=== PATIENT | female | born 1990 | race Caucasian/White ===

== ENCOUNTER 2017-06-09 05:50 | Inpatient (IN) | payer BC, MEDICAID ==
[~2017-06-09] VITALS: Ht 160 cm; Wt 67.6 kg
--- NOTE | 2017-06-09 05:51 | NUR ---
PT ROXY POTTER. TAKEN TO BED EDGI
--- NOTE | 2017-06-09 05:53 | NUR ---
Dr. Duncan evaluating patient at bedside.
[2017-06-09 05:58] VITALS: BP 123/99
--- NOTE | 2017-06-09 06:10 | NUR ---
27/F biba c/o syncopal episode after receiving hormones. 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 Pt states she is approximately 6 weeks . Denies vaginal bleeding. Denies N/V/D. Denies fever or chills. G3 P-1 A-1 miscarriage. AOX4, VSS.
[2017-06-09] MEDS ORDERED: NACL 0.9% 1,000 ML IV ONE (06:25)
--- NOTE | 2017-06-09 06:42 | NUR ---
Ultrasound at bedside.
[2017-06-09 06:51] LABS: BILIRUBIN,URINE NEGATIVE (NEGATIVE); BLOOD, URINE NEGATIVE (NEGATIVE); COLOR,URINE YELLOW (YELLOW); LEUKOCYTE ESTERASE ,URINE NEGATIVE (NEGATIVE); NITRITE, URINE NEGATIVE (NEGATIVE); UGLUCOSE NEGATIVE (NEGATIVE)
[2017-06-09 06:53] LABS: BASOPHILS # (AUTO) 0.1 K/uL (0.00-0.22); BASOPHILS % (AUTO) 0.9 % (0.0-2.0); EOSINOPHILS # (AUTO) 0.1 K/uL (0-0.4); EOSINOPHILS % (AUTO) 1.1 % (0.0-4.0); HEMATOCRIT 36.3 % (36-48); HEMOGLOBIN 12.6 g/dL (12.0-16.0); LYMPHOCYTES # (AUTO) 1.3 K/uL (2.5-16.5); LYMPHOCYTES % (AUTO) 13.1 % (20.5-51.1); MEAN CORPUSCULAR HEMOGLOBIN 31 pg (27-31); MEAN CORPUSCULAR HGB CONC 35 g/dL (33-37); MEAN CORPUSCULAR VOLUME 88 fL (80-94); MONOCYTES # (AUTO) 0.8 K/uL (0.8-1.0); MONOCYTES % (AUTO) 8.1 % (1.7-9.3); NEUTROPHILS # (AUTO) 7.5 K/uL (1.8-7.7); NEUTROPHILS % (AUTO) 76.8 % (42.2-75.2); PLATELET COUNT (AUTO) 264 K/uL (140-450); RED BLOOD CELL COUNT(AUTO) 4.12 MIL/uL (4.20-5.40); RED CELL DISTRIBUTION WIDTH 11.8 % (11.6-13.7); WHITE BLOOD COUNT (AUTO) 9.8 K/uL (4.8-10.8)
--- NOTE | 2017-06-09 07:05 | NUR ---
RECEIVED REPORT FROM ABIMBOLA GARNICA; US AT BEDSIDE AT THIS TIME; WILL CONTINUE TO MONITOR.
--- NOTE | 2017-06-09 07:07 | NUR ---
Pt report given to Kaiden DAILY. Transfer of care at this time.
[2017-06-09 07:09] LABS: APPEARANCE,URINE SLIGHTLY CLOUDY (CLEAR)
[2017-06-09 07:12] LABS: RBC,URINE 0-5 (RARE) /HPF (0-5); WBC,URINE 0-5 (RARE) /HPF (0-5)
--- NOTE | 2017-06-09 07:17 | NUR ---
Dr. Sanchez evaluating patient at bedside.
[2017-06-09 07:21] LABS: ALBUMIN 2.7 g/dL (3.4-5.0); ANION GAP 11.8 (8-16); CARBON DIOXIDE 25.8 mmol/L (21-32); CREATININE 0.7 mg/dL (0.6-1.3); POTASSIUM 3.6 mmol/L (3.5-5.1); TOTAL BILIRUBIN 0.4 mg/dL (0.0-1.0)
--- NOTE | 2017-06-09 08:28 | NUR ---
REPORT GIVEN TO ABIMBOLA AZAR.
--- NOTE | 2017-06-09 08:32 | NUR ---
Patient will be admitted to care of DR. GARCIA. Admited to TELEMETRY. Will go to room 119B. Belongings list completed. Report to ABIMBOLA AZAR.
[2017-06-09 08:34] VITALS: BP 119/75
[2017-06-09] MEDS ORDERED: [UNRECOGNIZED DRUG - CODE] IM (08:54)
[2017-06-09] MEDS ORDERED: [UNRECOGNIZED DRUG - CODE] VG (08:54)
[2017-06-09] MEDS ORDERED: [UNRECOGNIZED DRUG - CODE] TD (08:54)
[2017-06-09] MEDS ORDERED: ONDANSETRON 4 MG/2 ML VIAL IVP PRN (10:15)
[2017-06-09 10:50] LABS: PROTHROMBIN TIME 10.3 secs (10.8-13.4)
[2017-06-09 11:06] LABS: FREE T4 (FREE THYROXINE) 1.19 ng/dL (0.76-1.46); MAGNESIUM 1.6 mg/dL (1.8-2.4); PHOSPHORUS 3.6 mg/dL (2.5-4.9); THYROID STIMULATING HORMONE 1.96 uIU/mL (0.34-3.74)
--- NOTE | 2017-06-09 11:20 | NUR ---
1011 RECEIVED CALL FROM DOE BAZZI AT [facility] AND SHE REQUESTED ED NOTE AND ANY OTHER CLINICAL DOCUMENTATION AVAILABLE BE FAXED TO [phone]. PHONE [phone]. INFORMATION FAX REQUESTED AND ALSO INCLUDED CONTACT NUMBER FOR RESIDENT PHONE FOR PEER TO PEER WITH THEIR CALL CENTER COORDINATOR.
[2017-06-09] MEDS: NACL 0.9% 1,000 ML IV SCH (11:30)
[2017-06-09 12:00] VITALS: BP 106/65
[2017-06-09] MEDS ORDERED: MAG SULF 2000 MG/WATER PREMIX 50 ML IV ONE (12:30)
--- NOTE | 2017-06-09 12:50 | NUR ---
SPOKE WITH STEPHANIA [phone] REGARDING PATIENT'S CARE WITH PATIENT'S CONSENT.
--- NOTE | 2017-06-09 13:04 | NUR ---
ADMINISTERED SCHEDULED MEDICATIONS. PATIENT IV MAGNESIUM IS INFUSING WELL. THE BED IS LOWERED, CALL LIGHT WITHIN REACH AND AT BEDSIDE.
--- NOTE | 2017-06-09 14:40 | NUR ---
CM NOTE PER HOME HELP AIDE JS, SHE [facility] [phone] AND WAS TOLD THAT PATIENT IS APPROVED FOR ONE DAY AUTH# [id number], NO REVIEWS NEEDED FOR AUTHORIZED DAY.
--- NOTE | 2017-06-09 14:50 | NUR ---
PATIENT C/O HEADACHE 11/27 ADMINISTERED TYLENOL 650 MG PO. WILL REASSESS IN ONE HR.
[2017-06-09] MEDS: ACETAMINOPHEN 325 MG TAB PO PRN ×2 (14:51→21:06)
--- NOTE | 2017-06-09 15:50 | NUR ---
PATIENT IS SLEEPING.
[2017-06-09 16:00] VITALS: BP 100/59
--- NOTE | 2017-06-09 17:00 | NUR ---
PATIENT IS WATCHING TV AND SHOWS NO S/S OF ACUTE DISTRESS ON ROOM AIR. BED IS LOWERED WITH CALL LIGHT WITHIN REACH.
--- NOTE | 2017-06-09 19:18 | NUR ---
PATIENT IS AAOX4 AND SHOWS NO S/S OF ACUTE DISTRESS ON ROOM AIR. FAMILY AT BEDSIDE. GAVE PATIENT REPORT AT BEDSIDE TO NIGHT NURSE. PATIENT ENDORSED IN STABLE CONDITION.
--- NOTE | 2017-06-09 19:19 | NUR ---
RECEIVED REPORT FROM DAY RN FOR CONTINUITY OF CARE. PATIENT IS ALERT AND ORIENTED X4, DISCUSSED PLAN OF CARE WITH PATIENT, VERBALIZED UNDERSTANDING. SHIFT ASSESSMENT DONE, VITAL SIGNS STABLE. PATIENT C/O HEADACHE, WILL MEDICATE PER MD ORDER. NO RESPIRATORY DISTRESS OR DISCOMFORT NOTED. IV PATENT AND INFUSING FLUIDS WELL. SAFETY PRECAUTIONS ENFORCED. FAMILY MEMBER AT BEDSIDE. CALL LIGHT WITHIN REACH, WILL CONTINUE TO MONITOR.
[2017-06-09 20:00] VITALS: BP 104/70
[2017-06-09] MEDS: DOCUSATE SODIUM 100 MG GELCAP PO SCH (21:06)
--- NOTE | 2017-06-09 21:06 | NUR ---
DUE MEDICATIONS ADMINISTERED, TOLERATED WELL. PATIENT MEDICATED FOR C/O HEADACHE. CALL LIGHT WITHIN REACH, WILL CONTINUE TO MONITOR.
--- NOTE | 2017-06-09 21:20 | NUR ---
DR. ESPINOSA IN TO SEE PATIENT.
--- NOTE | 2017-06-09 23:52 | NUR ---
VITAL SIGNS STABLE, PATIENT RESTING IN BED NO DISTRESS OR DISCOMFORT NOTED. CALL LIGHT WITHIN REACH, WILL CONTINUE TO MONITOR.
[2017-06-09 23:56] LABS: BARBITURATE, URINE NEG. ng/ml (NEG <=200); BENZODIAZEPINE, URINE NEG. ng/mL (NEG <=200); CANNABINOID, URINE NEG. ng/mL (NEG <=50); COCAINE, URINE NEG. ng/mL (NEG <=300); OPIATE, URINE NEG. ng/mL (NEG <=2000); PHENCYCLIDINE SCREEN,URINE NEG. ng/mL (NEG <=25)
[2017-06-10] VITALS: BP 103/53
--- NOTE | 2017-06-10 02:05 | NUR ---
PATIENT ASLEEP AT THIS TIME, NO DISTRESS OR DISCOMFORT NOTED. SAFETY PRECAUTIONS ENFORCED, CALL LIGHT WITHIN REACH.
[2017-06-10 04:00] VITALS: BP 110/63
--- NOTE | 2017-06-10 04:12 | NUR ---
VITAL SIGNS STABLE, PATIENT RESTING IN BED NO DISTRESS OR DISCOMFORT NOTED. WILL CONTINUE TO MONITOR.
[2017-06-10] MEDS: ACETAMINOPHEN 325 MG TAB PO PRN ×2 (05:28→15:56)
[2017-06-10] MEDS: NACL 0.9% 1,000 ML IV SCH (06:16)
[2017-06-10 06:47] LABS: BASOPHILS # (AUTO) 0.2 K/uL (0.00-0.22); EOSINOPHILS # (AUTO) 0.3 K/uL (0-0.4); EOSINOPHILS % (AUTO) 1.8 % (0.0-4.0); HEMATOCRIT 37.1 % (36-48); LYMPHOCYTES # (AUTO) 1.8 K/uL (2.5-16.5); LYMPHOCYTES % (AUTO) 11.1 % (20.5-51.1); MEAN CORPUSCULAR HEMOGLOBIN 31 pg (27-31); MEAN CORPUSCULAR HGB CONC 35 g/dL (33-37); MEAN CORPUSCULAR VOLUME 89 fL (80-94); MONOCYTES # (AUTO) 0.8 K/uL (0.8-1.0); NEUTROPHILS # (AUTO) 13.2 K/uL (1.8-7.7); NEUTROPHILS % (AUTO) 81.1 % (42.2-75.2); PLATELET COUNT (AUTO) 274 K/uL (140-450); RED BLOOD CELL COUNT(AUTO) 4.19 MIL/uL (4.20-5.40); RED CELL DISTRIBUTION WIDTH 12.1 % (11.6-13.7)
--- NOTE | 2017-06-10 07:17 | NUR ---
ENDORSED PATIENT TO DAY RN FOR CONTINUITY OF CARE, PATIENT IS IN STABLE CONDITION.
--- NOTE | 2017-06-10 07:18 | NUR ---
RECEIVED PT FROM SEARCH ENGINE OPTIMIZATION CONSULTANT NURSE AT BEDSIDE. PT IS A&OX4. PT HAS IV ON L AC 18G RUNNING NS@50. NO ACUTE DISTRESS NOTED IN PT. PT ASKED IF HER HOME MED PROGESTERONE AND ESTRADIOL CAN BE GIVEN. WILL SPEAK TO DR. PT C/O DIZZINESS AND PAIN IN EARS. WILL LET DR KNOW. WILL MEDICATE WHEN PAIN MED IS DUE. CALL LIGHT WITHIN REACH. WILL CONTINUE TO MONITOR.
[2017-06-10 07:25] LABS: ANION GAP 11.5 (8-16); CREATININE 0.7 mg/dL (0.6-1.3); POTASSIUM 3.5 mmol/L (3.5-5.1)
[2017-06-10 07:28] LABS: CHOL/HDL RATIO 3.8 (1-4.5); MAGNESIUM 1.8 mg/dL (1.8-2.4); PHOSPHORUS 3.1 mg/dL (2.5-4.9)
[2017-06-10 08:00] VITALS: BP 116/70
--- NOTE | 2017-06-10 08:00 | NUR ---
DOCTORS MADE ROUNDS IN PT'S ROOM. DOCTORS AWARE OF PT'S PAIN IN EARS. DR AGUILERA STATED OKAY TO CONTINUE PROGESTERONE AND ESTRADIOL.
[2017-06-10 08:39] LABS: WHITE BLOOD COUNT (AUTO) 16.3 K/uL (4.8-10.8)
--- NOTE | 2017-06-10 08:53 | NUR ---
PATIENT HAS BEEN SCREENED AND CATEGORIZED HIGH NUTRITION RISK. PATIENT WILL BE SEEN WITHIN 1-2 DAYS OF ADMISSION. 06/09/17-06/10/[address]
[2017-06-10] MEDS ORDERED: COMMUNICATION ORDER MC SCH (09:00)
[2017-06-10] MEDS ORDERED: PROGESTERONE MICRONIZED 100 MG VG SCH (09:00)
[2017-06-10] MEDS ORDERED: [UNRECOGNIZED DRUG - OTHER] IM SCH (09:00)
[2017-06-10] MEDS ORDERED: PROGESTERONE IM SCH (09:00)
--- NOTE | 2017-06-10 09:00 | NUR ---
PER DR. AGUILERA'S ORDER, ADMINISTERED PROGESTERONE AND ESTRADIOL AT BEDSIDE.
[2017-06-10] MEDS: DOCUSATE SODIUM 100 MG GELCAP PO SCH (09:59)
--- NOTE | 2017-06-10 11:00 | NUR ---
PT IS RESTING IN BED. NO DISTRESS NOTED. CALL LIGHT WITHIN REACH. WILL CONTINUE TO MONITOR.
[2017-06-10 12:00] VITALS: BP 108/60
--- NOTE | 2017-06-10 12:30 | NUR ---
DR. PEREZ EXAMINED PT AND SPOKE WITH PT IN ROOM.
--- NOTE | 2017-06-10 14:00 | NUR ---
PT IS RESTING COMFORTABLY IN BED. NO DISTRESS NOTED. CALL LIGHT WITHIN REACH. WILL CONTINUE TO MONITOR.
[2017-06-10 16:00] VITALS: BP 96/48
--- NOTE | 2017-06-10 16:30 | NUR ---
SPOKE TO DR. JUNIOR REGARDING PT'S QUESTION OF WHEN ULTRASOUND TEST WILL BE DONE. DR. JUNIOR STATED THAT WE ARE WAITING FOR DR. OLGA XAVIER TO SEE PT. INFORMED PT OF PLAN OF CARE. PT VERBALIZED UNDERSTANDING.
[2017-06-10 18:30] VITALS: BP 96/48
--- NOTE | 2017-06-10 18:50 | NUR ---
DR. CONTE WROTE AN EXCUSE FROM SCHOOL/WORK NOTE FOR PT. GAVE PT THE NOTE. WENT OVER DC PAPERWORK WITH PT, PT VERBALIZED UNDERSTANDING AND SIGNED ALL APPROPRIATE PAPERS. REMOVED IV CANNULA INTACT. REMOVED ALL ID BANDS. PT WILL CALL NURSE WHEN READY TO GO.
--- NOTE | 2017-06-10 19:00 | NUR ---
PT REFUSED WHEELCHAIR. WALKED PT OUT OF HOSPITAL, ACCOMPANIED BY SPOUSE. PT IN STABLE CONDITION.
== END 2017-06-10 19:00 | disposition home or self-care (01) | DRG 781 ==
LOC: MED 05:50 → MTU 07:55
PROVIDERS: ADMIT Student in an Organized Health Care Education/Training Program; ATTEND Student in an Organized Health Care Education/Training Program
DX: O9A.211 Injury, poisoning and certain other consequences of external causes complicating pregnancy, first trimester (principal); E43 Unspecified severe protein-calorie malnutrition; S09.90XA Unspecified injury of head, initial encounter; W18.39XA Other fall on same level, initial encounter; O99.281 Endocrine, nutritional and metabolic diseases complicating pregnancy, first trimester; R55 Syncope and collapse; E83.42 Hypomagnesemia; E86.0 Dehydration; Z3A.01 Less than 8 weeks gestation of pregnancy; Y93.89 Activity, other specified; Y92.89 Other specified places as the place of occurrence of the external cause; Y99.8 Other external cause status; Z68.26 Body mass index [BMI] 26.0-26.9, adult
CPT/HCPCS: 36415; 70450; 76817; 80048; 80053; 80305; 81001; 83036; 83735; 83880; 84100; 84439; 84443; 84484; 84702; 85025; 85610; 85730; 86900; 86901; 87081; 87086; 93005; 96360; 99285; J3475; J7030; J7060; Q0092